=== PATIENT | male | born 1975 | race Caucasian/White ===

== ENCOUNTER 2020-11-01 22:46 | Inpatient (IN) | payer BC ==
[~2020-11-01] VITALS: Ht 175.3 cm; Wt 104.3 kg
[2020-11-01] MEDS ORDERED: ONDANSETRON HCL 4 MG/2 ML VIAL IV ONE (23:30)
[2020-11-01] MEDS ORDERED: SODIUM CHLORIDE 0.9% 1,000 ML IV ONE (23:30)
[2020-11-01 23:53] LABS: Basophils # (auto) 0 10 ^3/uL (0-0.2); Basophils % (auto) 0.3 % (0.0-2.0); Eosinophils # (auto) 0.1 10 ^3/uL (0-0.8); Eosinophils % (auto) 0.8 % (0.0-7.0); Hematocrit 43.8 % (41.0-53.0); Hemoglobin 15.1 g/dL (13.5-17.5); Lymphocytes # (auto) 1.1 10 ^3/uL (0.4-5.4); Lymphocytes % (auto) 14.7 % (10.0-50.0); Mean Corpuscular Hemoglobin 31.6 pg (28.0-32.0); Mean Corpuscular Hgb Conc. 34.5 g/dL (32.0-36.0); Mean Corpuscular Volume 91.4 fL (80.0-100.0); Monocytes # (auto) 0.6 10 ^3/uL (0-1.3); Monocytes % (auto) 7.5 % (0.0-12.0); Neutrophils # (auto) 5.9 10 ^3/uL (1.6-8.6); Neutrophils % (auto) 76.7 % (37.0-80.0); Platelet Count (auto) 186 10^3/uL (140-450); Red Blood Cells 4.79 10^6/uL (4.5-5.90); Red Cell Distribution Width 13.6 % (11.8-14.3); White Blood Cell 7.7 10^3/uL (4.4-10.8)
[2020-11-02 00:29] LABS: Albumin 4.5 g/dL (3.4-5.0); Anion Gap 14 (5-15); BUN/Creatinine Ratio 11.9; Blood Alcohol < 3.0 mg/dL (0-5); Blood Urea Nitrogen 10 mg/dL (7-18); Calcium 8.9 mg/dL (8.5-10.1); Carbon Dioxide 21 mmol/L (21-32); Chloride 101 mmol/L (98-107); GFR African American 128 mL/min; GFR Non-African American 106 mL/min; Glucose 115 mg/dL (74-106); Magnesium 1.9 mg/dL (1.6-2.6); Potassium 3.1 mmol/L (3.5-5.1); Sodium 136 mmol/L (136-145)
[2020-11-02 00:44] LABS: Alanine Aminotransferase 117 U/L (16-61); Alkaline Phosphatase 63 U/L (45-117); Aspartate Aminotransferase 160 U/L (15-37); Bilirubin, Total 1.1 mg/dL (0.2-1.0); Creatine Kinase IFCC 3172 U/L (39-308); Total Protein 7.9 g/dL (6.4-8.2)
[2020-11-02] MEDS ORDERED: SODIUM CHLORIDE 0.9% 3,000 ML IV STA (01:38)
[2020-11-02] MEDS ORDERED: SOD CHL 0.9%/ KCL 40MEQ 1,000 ML IV ONE (01:45)
[2020-11-02] MEDS: POTASSIUM CHL 20MEQ/100ML 100 ML IV SCH ×2 (04:09→07:41)
[2020-11-02] MEDS ORDERED: ONDANSETRON HCL 4 MG/2 ML VIAL IV PRN (04:15)
[2020-11-02] MEDS ORDERED: SOD CHL 0.9%/ KCL 20MEQ 1,000 ML IV ONE (04:15)
[2020-11-02] MEDS ORDERED: FAMOTIDINE 20 MG TAB PO SCH (10:00)
[2020-11-02 18:00] VITALS: BP 155/99
== END 2020-11-02 17:00 | disposition left against medical advice (07) | DRG 557 ==
LOC: EDBD 22:46 → ER 22:50 → EDBD 22:50 → OVERFLOW 22:51
PROVIDERS: ADMIT Nurse Practitioner; ATTEND Family Medicine
DX: M62.82 Rhabdomyolysis (principal); G93.41 Metabolic encephalopathy; E86.0 Dehydration; Z20.822 Contact with and (suspected) exposure to COVID-19; E66.9 Obesity, unspecified; Z53.29 Procedure and treatment not carried out because of patient's decision for other reasons; R74.01 Elevation of levels of liver transaminase levels; R74.8 Abnormal levels of other serum enzymes; R79.89 Other specified abnormal findings of blood chemistry; Z68.34 Body mass index [BMI] 34.0-34.9, adult
CPT/HCPCS: 36415; 70450; 71045; 80053; 80320; 82550; 83735; 84484; 85025; 87426; 93005; 96360; 96361; G0378; J3480